=== PATIENT | female | born 1985 | race Caucasian/White ===

== ENCOUNTER 2021-03-20 09:18 | Inpatient (IN) | payer OTHER, SELFPAY ==
[2021-03-20] MEDS ORDERED: Ketorolac Tromethamine 15 MG/ML VIAL ONE ×3 (09:40→17:01)
[2021-03-20] MEDS ORDERED: Morphine 4 MG/ML VIAL ONE ×3 (10:50→13:00)
[2021-03-20 11:42] LABS: #Eosinphils 0.1 10x3/uL (0.0-0.5); #Monocytes 0.5 10x3/uL (0.0-1.1); #Neutrophils 9.5 10x3/uL (1.5-8.4); %Basophils 0.4 % (0.0-2.0); %Eosinophils 0.8 % (0.0-6.0); %Lymphocytes 9.7 % (18.0-47.0); %Monocytes 4.5 % (0.0-10.0); %Neutrophils 84.3 % (40.0-75.0); Hemoglobin 13.6 g/dL (12.0-15.5); Mean Corpuscular HGB CONC 33.3 g/dL (32.0-36.0); Mean Corpuscular Hemoglobin 33.2 pg (27.0-33.0); Mean Corpuscular Volume 99.5 fl (81.6-98.3); Mean Platelet Volume 9.2 fl (7.4-10.4); Platelet Count 304 10x3/uL (150-450); RBC Distribution Width 12.9 % (11.5-14.5); White Blood Cell (WBC) Count 11.2 10x3/uL (3.5-10.5)
[2021-03-20 11:50] LABS: SARS-CoV-2 NAA Rapid Test Not Detected (NotDetected)
[2021-03-20 11:56] LABS: BHCG - Serum Negative (NEGATIVE); Pregs Control Background? CLEAR/WHITE (CLR/WHITE); Pregs Control Bar Appear? YES (CONTROL BAR)
[2021-03-20 12:04] LABS: Anion Gap 11 mmol/L (10-20); BUN (Urea Nitrogen) 11 mg/dL (7.0-18.7); Calc. Creatinine Clearance 0 mL/min (70-130); Calcium 8.4 mg/dL (7.8-10.44); Carbon Dioxide 23 mmol/L (22-29); Chloride 106 mmol/L (98-107); Glucose 100 mg/dL (70-105); Potassium 4.1 mmol/L (3.5-5.1); Sodium 136 mmol/L (136-145)
[2021-03-20] MEDS: Morphine 4 MG/ML VIAL SLOW IVP PRN ×3 (13:00→23:37)
[2021-03-20] MEDS ORDERED: CEFAZOLIN 2 GM in Premix Bag 1 BAG IVPB SCH (13:45)
[2021-03-20] MEDS ORDERED: Morphine 2 MG/ML VIAL SLOW IVP PRN ×2 (14:34→14:51)
[2021-03-20] MEDS ORDERED: Ondansetron HCl/PF 8 MG in Sodium Chloride 0.9% 50 ML IVPB PRN (14:37)
[2021-03-20 14:59] VITALS: BMI 25.8
[2021-03-20] MEDS ORDERED: PROPOFOL 20 ML ONE (15:00)
[2021-03-20] MEDS: D5 1/2 NS w/20 mEq KCL 1,000 ML IV SCH ×2 (15:00→23:38)
[2021-03-20] MEDS ORDERED: Succinylcholine 200 MG/10 ml SYRINGE FS ONE (15:05)
[2021-03-20] MEDS ORDERED: Lidocaine 1% PF 5 ML VIAL ONE (15:05)
[2021-03-20] MEDS ORDERED: Dexamethasone 4 mg/ml Vial ONE ×2 (15:05→16:16)
[2021-03-20] MEDS ORDERED: Rocuronium Bromide 10 MG/ML (10ML VIAL) ONE (15:05)
[2021-03-20] MEDS ORDERED: Ondansetron PF 4 MG/2 ML Vial ONE ×2 (15:05→16:16)
[2021-03-20] MEDS ORDERED: Midazolam HCl 2 mg/2 ml Vial ONE (15:24)
[2021-03-20] MEDS ORDERED: Fentanyl 100 MCG/2 ML VIAL ONE ×3 (15:25→18:15)
[2021-03-20] MEDS ORDERED: Famotidine/PF 20 mg/2ml Vial ONE (15:25)
[2021-03-20] MEDS ORDERED: EPINEPHrine 1 MG/ML AMP ONE (15:45)
[2021-03-20] MEDS ORDERED: Bupivacaine PF 0.5% 30 ML VIAL ONE (15:45)
[2021-03-20] MEDS ORDERED: diphenhydrAMINE 50 MG/ML VIAL ONE (16:16)
[2021-03-20] MEDS ORDERED: Glycopyrrolate 0.2 MG/ML 5 ML SYRINGE ONE (16:19)
[2021-03-20] MEDS ORDERED: [UNRECOGNIZED DRUG - REMARK] FS PRN (17:45)
[2021-03-20] MEDS ORDERED: HYDROmorphone 0.5 MG/0.5 ML SYRINGE ONE (18:03)
[2021-03-20] MEDS: HYDROcodone/Acetaminophen 5/325 mg Tablet PO PRN (20:32)
[2021-03-20] MEDS: CEFAZOLIN 2 GM in Premix Bag 1 BAG IVPB SCH (23:40)
[2021-03-21] MEDS: HYDROcodone/Acetaminophen 5/325 mg Tablet PO PRN ×4 (01:31→21:19)
[2021-03-21 04:31] LABS: #Monocytes 0.8 10x3/uL (0.0-1.1); %Basophils 0.3 % (0.0-2.0); %Lymphocytes 7.9 % (18.0-47.0); %Monocytes 7.1 % (0.0-10.0); %Neutrophils 84.2 % (40.0-75.0); Hemoglobin 12.2 g/dL (12.0-15.5); Mean Corpuscular HGB CONC 32.8 g/dL (32.0-36.0); Mean Corpuscular Hemoglobin 33.2 pg (27.0-33.0); Mean Corpuscular Volume 101.4 fl (81.6-98.3); Mean Platelet Volume 9.2 fl (7.4-10.4); Platelet Count 299 10x3/uL (150-450); Red Blood Cell (RBC) Count 3.67 10x6/uL (3.90-5.03); White Blood Cell (WBC) Count 10.7 10x3/uL (3.5-10.5)
[2021-03-21] MEDS: Morphine 4 MG/ML VIAL SLOW IVP PRN ×5 (04:37→22:32)
[2021-03-21] MEDS: Enoxaparin Sodium 30 MG/0.3 ML SYRINGE SC SCH (08:01)
[2021-03-21] MEDS: Escitalopram Oxalate 10 mg Tablet PO SCH (08:01)
[2021-03-21] MEDS: CEFAZOLIN 2 GM in Premix Bag 1 BAG IVPB SCH (08:01)
[2021-03-22] MEDS: HYDROcodone/Acetaminophen 5/325 mg Tablet PO PRN (02:46)
[2021-03-22] MEDS: Morphine 4 MG/ML VIAL SLOW IVP PRN ×2 (04:23→08:35)
[2021-03-22] MEDS: Escitalopram Oxalate 10 mg Tablet PO SCH (08:47)
[2021-03-22] MEDS: traMADol HCl 50 MG TAB PO PRN (11:58)
[2021-03-22] MEDS: HYDROcodone/Acetaminophen 10/325 mg Tablet PO PRN ×4 (13:11→21:33)
[2021-03-22] MEDS: Enoxaparin Sodium 30 MG/0.3 ML SYRINGE SC SCH (17:42)
[2021-03-22] MEDS: Cyclobenzaprine 10 MG TAB PO PRN ×2 (17:42→23:07)
[2021-03-23] MEDS: traMADol HCl 50 MG TAB PO PRN (04:25)
[2021-03-23] MEDS: Cyclobenzaprine 10 MG TAB PO PRN (06:13)
[2021-03-23] MEDS: HYDROcodone/Acetaminophen 10/325 mg Tablet PO PRN ×2 (06:59→12:40)
[2021-03-23] MEDS: Enoxaparin Sodium 30 MG/0.3 ML SYRINGE SC SCH (09:41)
[2021-03-23] MEDS: Escitalopram Oxalate 10 mg Tablet PO SCH (09:41)
[2021-03-23 14:29] VITALS: BP 102/65; TEMP 98.2
== END 2021-03-23 14:00 | disposition home or self-care (01) | DRG 482 ==
LOC: CSHERS 09:18 → CSHTELE 10:59 → INTOOBSV 10:59 → OBSVTOIN 17:33
PROVIDERS: ADMIT Orthopaedic Surgery; ATTEND Orthopaedic Surgery
PROC: 0QS604Z Reposition Right Upper Femur with Internal Fixation Device, Open Approach (ICD-10-PCS; principal; 2021-03-20)
DX: M84.351A Stress fracture, right femur, initial encounter for fracture (principal); Z90.89 Acquired absence of other organs; F32.9 Major depressive disorder, single episode, unspecified; Z20.822 Contact with and (suspected) exposure to COVID-19
CPT/HCPCS: 36415; 72170; 80048; 84703; 85025; 94760; 96372; 96374; 96376; C1713; C1769; G0378; J0171; J0690; J1100; J1170; J1200; J1650; J1885; J2250; J2270; J2405; J2704; J3010; J3480; S0020; S0028; U0002

== ENCOUNTER 2022-01-03 14:15 | Outpatient (CLI) | payer OTHER | END 2022-01-03 14:16 | disposition home or self-care (01) | LOC: CSHCT 14:15 | PROVIDERS: ATTEND Orthopaedic Surgery | DX: S72.001D Fracture of unspecified part of neck of right femur, subsequent encounter for closed fracture with routine healing (principal); Z87.81 Personal history of (healed) traumatic fracture ==